=== PATIENT | male | born 1995 | race American Indian/Alaskan Native ===

== ENCOUNTER 2020-07-16 14:42 | Emergency (ER) | payer SELFPAY ==
[2020-07-16 15:14] VITALS: BP 110/77
--- NOTE | 2020-07-16 15:24 | Emergency Department Report ---
Blank Doc - Documentation Documentation: 25-year-old male that presents with lower back pain s/p fall. This initial assessment/diagnostic orders/clinical plan/treatment(s) is/are subject to change based on patient's health status, clinical progression and re- assessment by fellow clinical providers in the ED. Further treatment and workup at subsequent clinical providers discretion. Patient/guardians urged not to elope from the ED as their condition may be serious if not clinically assessed and managed. Initial orders include: 1- Patient sent to [facility] for further evaluation and treatment 2- xrays
[2020-07-16] MEDS ORDERED: oxyCODONE /ACETAMINOPHEN 5-325MG TAB PO ONE (15:46)
[2020-07-16] MEDS ORDERED: NAPROXEN 500 MG TAB PO ONE (15:46)
[2020-07-16] MEDS ORDERED: LIDOCAINE 5% 1 EACH PATCH TD SCH (16:00)
--- NOTE | 2020-07-16 16:29 | Emergency Department Report ---
ED General Adult HPI - General Chief complaint: Back Pain/Injury Stated complaint: LOWER BACK PAIN Time Seen by Provider: 07/16/20 15:23 Source: patient Mode of arrival: Ambulatory Limitations: No Limitations - History of Present Illness Initial comments: Patient is a 25-year-old male who fell off a ladder while cleaning the gutters patient denies hitting his head or have any loss of consciousness he landed on his back. He states he is having lower back pain and it hurts to move pain is a 9 out of 10 moving makes it worse nothing makes it better. Pain does not radiate anywhere patient denies any other complaints. He has no medical problems. - Related Data Previous Rx's Medication Instructions Recorded Last Taken Type Naproxen [Naprosyn] 375 mg PO BID #20 tablet 07/16/20 Unknown Rx Allergies Allergy/AdvReac Type Severity Reaction Status Date / Time No Known Allergies Allergy Unverified 07/16/20 15:12 ED Review of Systems ROS: Stated complaint: LOWER BACK PAIN Other details as noted in HPI Constitutional: denies: chills, fever Eyes: denies: eye pain, eye discharge, vision change ENT: denies: ear pain, throat pain Respiratory: denies: cough, shortness of breath, wheezing Cardiovascular: denies: chest pain, palpitations Endocrine: no symptoms reported Gastrointestinal: denies: abdominal pain, nausea, diarrhea Genitourinary: denies: urgency, dysuria Musculoskeletal: back pain. denies: joint swelling, arthralgia Skin: denies: rash, lesions Neurological: denies: headache, weakness, paresthesias Psychiatric: denies: anxiety, depression Hematological/Lymphatic: denies: easy bleeding, easy bruising ED Past Medical Hx - Past Medical History Previous Medical History?: No - Surgical History Past Surgical History?: No - Medications Home Medications: Home Medications Medication Instructions Recorded Confirmed Last Taken Type Naproxen [Naprosyn] 375 mg PO BID #20 tablet 07/16/20 Unknown Rx ED Physical Exam - General Limitations: No Limitations General appearance: alert, in no apparent distress - Head Head exam: Present: atraumatic, normocephalic - Eye Eye exam: Present: normal appearance - ENT ENT exam: Present: mucous membranes moist - Neck Neck exam: Present: normal inspection - Respiratory Respiratory exam: Present: normal lung sounds bilaterally. Absent: respiratory distress - Cardiovascular Cardiovascular Exam: Present: regular rate, normal rhythm. Absent: systolic murmur, diastolic murmur, rubs, gallop - GI/Abdominal GI/Abdominal exam: Present: soft, normal bowel sounds - Rectal Rectal exam: Present: deferred - Extremities Exam Extremities exam: Present: normal inspection - Back Exam Back exam: Present: normal inspection, tenderness - Neurological Exam Neurological exam: Present: alert, oriented X3 - Psychiatric Psychiatric exam: Present: normal affect, normal mood - Skin Skin exam: Present: warm, dry, intact, normal color. Absent: rash ED Course Vital Signs 07/16/20 15:12 Temperature 98.3 F Pulse Rate 78 Respiratory 16 Rate Blood Pressure 110/77 [Right] O2 Sat by Pulse 98 Oximetry ED Medical Decision Making - Radiology Data Radiology results: image reviewed Lumbar x-ray shows no acute osseous injury - Medical Decision Making Chief medical diagnosis: Lumbosacral strain Differential medical diagnosis: Occult lumbar fracture, herniated disc I will get x-rays and I will give oral pain medicine I will discharge the patient home 16: 30 patient is feeling better I will discharge patient from the ED additional verbal discharge instructions were given. Critical care attestation.: If time is entered above; I have spent that time in minutes in the direct care of this critically ill patient, excluding procedure time. ED Disposition Clinical Impression: Fall from ladder Qualifiers: Encounter type: initial encounter Qualified Code(s): W11.XXXA - Fall on and from ladder, initial encounter Acute back pain Qualifiers: Back pain location: low back pain Back pain laterality: midline Sciatica presence: without sciatica Qualified Code(s): M54.5 - Low back pain Disposition: TO HOME OR SELFCARE Is pt being admited?: No Does the pt Need Aspirin: No Condition: Stable Instructions: Low Back Strain (ED) Prescriptions: Naproxen [Naprosyn] 375 mg PO BID #20 tablet Referrals: JANE STOVALL MD [Staff Physician] - 3-5 Days
--- NOTE | 2020-07-16 16:29 | XRay Report ---
Lumbar spine 3 views INDICATION: Low back pain IMPRESSION: Lumbar spine alignment is normal. The vertebral body heights are well-maintained. Mild fa cet arthropathy at L4-L5 and L5-S1. Minimal neural foraminal narrowing at L5-S1. Signer Name: Xavi Kirkland MD Signed: 07/16/2020 4:24 PM Workstation Name: [id number]
== END 2020-07-16 17:49 | disposition home or self-care (01) ==
LOC: ED 14:42
DX: M54.5 Low back pain (principal); W11.XXXA Fall on and from ladder, initial encounter; Y93.89 Activity, other specified; Y92.89 Other specified places as the place of occurrence of the external cause; Y99.8 Other external cause status
CPT/HCPCS: 72100